=== PATIENT | male | born 1955 | race Caucasian/White ===

== ENCOUNTER → 2022-05-27 14:01 | Outpatient (BNVA) | payer OTHER, SELFPAY | PROVIDERS: Visit Provider Dermatology | DX: D48.9 Neoplasm of uncertain behavior, unspecified (principal) | CPT/HCPCS: 88305 ==

== ENCOUNTER 2023-08-01 14:30 | Outpatient (CLI) | payer OTHER, SELFPAY ==
--- NOTE | 2023-08-01 14:39 | CT_ITS ---
WS: [id number] CT NECK WITH CONTRAST HISTORY: NECK MASS TECHNIQUE: Contiguous 2 mm axial images are performed through the neck with intravenous contrast. Sag ittal and coronal reformats are also submitted. All CT scans at [facility] use at least one o f these dose optimization techniques: automated exposure control; mA and/or kV adjustment per patient size (includes targeted exams where dose is matched to clinical indication); or iterative reconstruc tion. CONTRAST: CONTRAST: Omnipaque 350; 100 mL IV. DLP: 315.80 mGy.cm COMPARISON: Neck ultrasound 07/07/2023 There is a well-circumscribed soft tissue mass along the midline of the neck between the strap muscle s. Mass measures 1.3 x 1.5 cm and is superficial and anterior to the hyoid bone. This corresponds to the mass seen on the recent ultrasound. There are few adjacent cervical chain lymph nodes which are n ormal size. No criteria for adenopathy. Of note is the thyroid gland which is present. The oropharynx and nasopharynx are negative. Chronic emphysematous changes at the lung apices. Atherosclerosis aorta. IMPRESSION: 1. Well-circumscribed mildly complex and heterogeneous mass along the midline between the strap musc les. Mass is at the level of the hyoid bone but slightly removed. Differential includes thyroglossal duct cyst, epidermoid/dermoid and abnormal lymph node. Recommend surgical evaluation and removal. 2. No cervical chain lymphadenopathy. 3. Thyroid gland is present. The midline mass enhancement is not similar to the thyroid glucan gland therefore less likely ectopic thyroid.
--- NOTE | 2023-08-01 14:39 | CT_ITS ---
WS: [id number] Exam: CT head wo/w con [id number] Date/Time of Exam: 08/01/2023 3:01 PM Reason For Exam: NECK MASS DLP: 2301.[address] scans at [facility] use at least one of these dose optimization techniques: automated e xposure control; mA and/or kV adjustment per patient size (includes targeted exams where dose is matc hed to clinical indication); or iterative reconstruction. There was no sign of space-occupying mass or acute intracranial bleed. The ventricles and basal ciste rns are normal in size. There are no contrast-enhancing lesions. No extra-axial fluid collections are seen. Minimal aging changes. The skull is intact. The mastoids and facial sinuses are clear. Leftwar d nasal septal deviation. Unremarkable orbits and optic globes. Unremarkable soft tissues. IMPRESSION: 1. No indication of recent infarct, mass or acute bleed. 2. Minimal aging changes of the brain.
[2023-08-01] MEDS: iohexol 350 mg/mL 500 mL Btl (per mL) IV ×2 (15:03→15:04)
[2023-08-01 15:06] LABS: Blood Urea Nitrogen 11 mg/dL (8-23); Glomerular Filtration Rate 74.5 mL/min (90-130)
== END 2023-08-01 14:31 | disposition home or self-care (01) ==
LOC: RAD 14:30
PROVIDERS: Visit Provider Family Medicine
DX: R22.1 Localized swelling, mass and lump, neck (principal)
CPT/HCPCS: 70470; 70491; 82565; 84520; Q9967